=== PATIENT | male | born 1965 | race Caucasian/White ===

== ENCOUNTER 2024-03-12 10:00 | Outpatient (RCR) | payer BC, SELFPAY ==
[2023-10-08] MEDS: SODIUM CHLORIDE 0.9 % (FLUSH) 10 ML SYRINGE IVF (11:56)
[2024-03-12] MEDS: SODIUM CHLORIDE 0.9 % (FLUSH) 10 ML SYRINGE IVF (10:28)
== END 2024-04-05 23:59 | disposition home or self-care (01) ==
LOC: CCIC 10:00
PROVIDERS: Visit Provider Clinical Nurse Specialist
DX: C18.7 Malignant neoplasm of sigmoid colon (principal)
CPT/HCPCS: 99211

== ENCOUNTER 2024-03-12 10:04 | Outpatient (CLI) | payer BC, SELFPAY ==
--- NOTE | 2024-03-12 10:15 | CRLHL7_ITS ---
For Patients: As a result of the Century Cures Act, medical imaging exams and procedure reports are released immediately into your electronic medical record. You may view this report before your referring provider. If you have questions, please contact your health care provider. INDICATION: Rectal cancer. TECHNIQUE: Rectal MRI with T1, T2, and postcontrast images. Intravenous gadolinium administered. FINDINGS: Resection of the rectum with a colo-anal anastomosis. Presacral postsurgical scarring. Small lymph nodes in the posterior pelvis measuring up to 5 mm in short axis do not meet size criteria for adenopathy. No pelvic sidewall adenopathy. No other bony or soft tissue abnormalities identified. Impression : 1. Resection of the rectum. 2. No pelvic mass or adenopathy identified. Dictated by Venkat Waller MD @ 03/12/2024 1:16:16 PM (Electronically Signed)
== END 2024-03-12 10:05 | disposition home or self-care (01) ==
LOC: MRI 10:05
PROVIDERS: Visit Provider Radiology Radiation Oncology
DX: C20 Malignant neoplasm of rectum (principal)
CPT/HCPCS: 72197; A9575